=== PATIENT | female | born 1960 | race Caucasian/White ===

== ENCOUNTER 2017-01-31 14:30 | Emergency (ER) | payer OTHER ==
[2017-01-31 15:48] LABS: RED BLOOD COUNT 5.05 M/UL (4.00-5.10); WHITE BLOOD COUNT 8.7 K/UL (4.5-11.0)
== END 2017-01-31 16:46 | disposition home or self-care (01) ==
LOC: ER1 14:30
PROVIDERS: Physician Assistant
DX: B37.2 Candidiasis of skin and nail (principal); E11.9 Type 2 diabetes mellitus without complications; I10 Essential (primary) hypertension; G20 Parkinson's disease; J45.909 Unspecified asthma, uncomplicated; Z90.49 Acquired absence of other specified parts of digestive tract; Z88.1 Allergy status to other antibiotic agents; Z88.2 Allergy status to sulfonamides; Z88.5 Allergy status to narcotic agent
CPT/HCPCS: 36415; 80053; 81001; 85025; 87086; 99283

== ENCOUNTER → 2017-02-16 | Outpatient (CLI) | payer OTHER | LOC: OPSV 13:00 | DX: B35.4 Tinea corporis (principal) | CPT/HCPCS: G0463 ==

== ENCOUNTER 2021-06-27 16:02 | Observation (INO) | payer OTHER ==
[~2021-06-27] VITALS: Ht 172.7 cm; Wt 124.7 kg
[2021-06-27 18:28] LABS: RED BLOOD COUNT 4.79 M/UL (4.00-5.10); WHITE BLOOD COUNT 8.6 K/UL (4.5-11.0)
[2021-06-27] MEDS ORDERED: LAMOTRIGINE200 MG PO (21:05)
[2021-06-27] MEDS ORDERED: AZITHROMYCIN250 MG PO (21:05)
[2021-06-27] MEDS ORDERED: MECLIZINE HCL25 MG PO (21:06)
[2021-06-27] MEDS ORDERED: DULOXETINE HCL60 MG PO (21:06)
[2021-06-27] MEDS ORDERED: CARBIDOPA-LEVO1 EA14 PO (21:06)
[2021-06-27] MEDS ORDERED: HYDROXYZINE HCL25 MG PO (21:07)
[2021-06-27] MEDS ORDERED: KENALOG CREAM 015 GM TOP (21:08)
[2021-06-27] MEDS ORDERED: TACROLIMUS TP (21:08)
[2021-06-27] MEDS ORDERED: ATORVASTATIN CA10 MG PO (21:09)
[2021-06-27] MEDS ORDERED: DITROPAN XL 5 MG5 MG PO (21:10)
[2021-06-27] MEDS ORDERED: NURTEC ODT75 MG PO (21:10)
[2021-06-27] MEDS ORDERED: PROTONIX 40 MG40 M1 PO (21:10)
[2021-06-27] MEDS ORDERED: VALIUM 2 MG TAB2 MG PO (21:11)
[2021-06-27] MEDS ORDERED: GLUCOPHAGE 500500 MG PO (21:11)
[2021-06-27] MEDS ORDERED: LISINOPRIL20 MG PO (21:12)
[2021-06-27] MEDS ORDERED: BACTROBAN OINT22 GM EXT (21:12)
[2021-06-27] MEDS ORDERED: DUPIXENT P300 MG/2 M SQ (21:14)
[2021-06-27] MEDS ORDERED: B12 ACTIVE1000 MCG PO (21:15)
[2021-06-27] MEDS ORDERED: FOLIC ACID1 MG PO (21:15)
[2021-06-27] MEDS ORDERED: ONE DAILY WOME1 EAC1 PO (21:16)
[2021-06-27] MEDS ORDERED: CLARITIN10 MG PO (21:16)
[2021-06-27] MEDS ORDERED: VITAMIN D31250 MCG PO (21:17)
[2021-06-27] MEDS ORDERED: ASPIRIN EC81 MG PO (21:18)
[2021-06-27] MEDS ORDERED: MOTRIN IB200 MG PO (21:19)
[2021-06-28 07:12] LABS: HEMOGLOBIN 14.5 gm/dl (12.3-15.3); RED BLOOD COUNT 4.69 M/UL (4.00-5.10); WHITE BLOOD COUNT 7.5 K/UL (4.5-11.0)
[2021-06-29] MEDS ORDERED: ATORVASTATIN CA20 MG PO (11:14)
== END 2021-06-29 14:04 | disposition home or self-care (01) ==
LOC: ER1 16:02 → CDU 18:58 → M/S 20:44
PROVIDERS: Emergency Medicine; ADMIT Internal Medicine
DX: R20.0 Anesthesia of skin (principal); R53.1 Weakness; E11.9 Type 2 diabetes mellitus without complications; I10 Essential (primary) hypertension; G20 Parkinson's disease; G40.909 Epilepsy, unspecified, not intractable, without status epilepticus; G47.33 Obstructive sleep apnea (adult) (pediatric); F41.9 Anxiety disorder, unspecified; E66.01 Morbid (severe) obesity due to excess calories; E78.5 Hyperlipidemia, unspecified; F31.9 Bipolar disorder, unspecified; Z99.89 Dependence on other enabling machines and devices; Z68.41 Body mass index [BMI] 40.0-44.9, adult; Z88.5 Allergy status to narcotic agent; Z88.1 Allergy status to other antibiotic agents; Z88.2 Allergy status to sulfonamides; Z79.82 Long term (current) use of aspirin; Z79.84 Long term (current) use of oral hypoglycemic drugs; Z79.899 Other long term (current) drug therapy; Z20.822 Contact with and (suspected) exposure to COVID-19
CPT/HCPCS: ECHO; 36415; 70450; 70551; 71045; 80048; 80053; 80061; 80175; 83735; 84439; 84443; 84484; 85025; 85610; 85730; 93005; 93306; 93880; 96374; 97116-GP-CQ; 97162; 97165; 97530; G0378; J2060; U0002